=== PATIENT | male | born 1965 | race Caucasian/White ===

== ENCOUNTER 2020-05-07 07:04 | Day surgery (SDC) | payer MEDICARE, OTHER ==
[~2020-05-07] VITALS: Ht 175.3 cm; Wt 75.0 kg
[~2020-05-07 07:04] MED LIST: ACYC800 PO; CLIN300 PO; CLON.5 PO; CYCL10 PO; DIVA500EC; ESCI5 PO; GABA100; HYDACE5 PO; IBUP800 PO; LISI5; LORA1 PO; METO25ER; NAPR500 PO; NAPR500ERA PO; OXYACE5T PO; Percocet 5-3251 EACH PO; QUET100; QUET100 PO; QUET200 PO; QUET25 PO; QUET300 PO; SPIR25; SULTRIDS PO; TRAM50 PO; VENL75ER; ZOLP10 PO
[2020-05-07] MEDS ORDERED: POTA20LUD PO (08:29)
--- NOTE | 2020-05-07 11:25 | NUR ---
ADDENDUM: R AC SITE ([facility]) NO SWELLING/HEMATOMA, MEENU AND TEGADERM DRSG INTACT.
--- NOTE | 2020-05-07 11:25 | NUR ---
PT TO RECOVERY ROOM POST PROCEDURE. PT ALERT AND ORIENTED, COOPERATIVE; DENIES CHEST PAIN POST PROCEUDRE. MONITOR SR 70'S, B/P 162/96, AFEBRILE, SPO2 98% RA. R RADIAL SITE NO SWELLING/HEMATOMA, TR BAND IN PLACE 11 CC AIR AT 1100.
--- NOTE | 2020-05-07 12:20 | NUR ---
ATTEMPTED TO RELEASE AIR FROM R RADIAL TR BAND. PT BLED. TR BAND REINFALTED. NO BLEEDING OR HEMATOMA NOTED. VSS. NADN.
--- NOTE | 2020-05-07 13:10 | NUR ---
PT AIR FULLY DEFLATED FROM TR BAND. NO BLEEDING NOTED. VSS. R BRACHIAL VEIN SITE REMAINS CLEAR. PT SISTER TO BEDSIDE. CALL \LIGHT WITHIN REACH.
--- NOTE | 2020-05-07 13:48 | NUR ---
DISCHARGE: PT TR BAND REMOVED. NO BLEEDING OR HEMATOMA NOTED. VSS. NADN. PT BRACHIAL SITE REMAINS CLEAR. NO BLEEDING NOTED. DOT DRESSING APPLIED TO R RADIAL WITH SPLINT/ SLING IN PLACE. IV DC 'D. CATH INTACT. PRESSURE DSG APPLIED. PT AND SISTER VERBALIZES UNDERSTANDING WRITTEN AND VERBAL ORDERS. PT DC TO HOME VIA .
== END 2020-05-07 13:30 | disposition home or self-care (01) ==
LOC: MHTC 07:04
PROC: B206YZZ Plain Radiography of Right and Left Heart using Other Contrast (ICD-10-PCS; principal; 2020-05-07)
PROC: B201YZZ Plain Radiography of Multiple Coronary Arteries using Other Contrast (ICD-10-PCS; principal; 2020-05-07)
PROC: 4A023N8 Measurement of Cardiac Sampling and Pressure, Bilateral, Percutaneous Approach (ICD-10-PCS; principal; 2020-05-07)
DX: I27.20 Pulmonary hypertension, unspecified (principal); I50.9 Heart failure, unspecified; F17.210 Nicotine dependence, cigarettes, uncomplicated; I42.8 Other cardiomyopathies; Z88.0 Allergy status to penicillin; Z88.8 Allergy status to other drugs, medicaments and biological substances; Z91.013 Allergy to seafood; Z79.899 Other long term (current) drug therapy; I34.0 Nonrheumatic mitral (valve) insufficiency; F32.9 Major depressive disorder, single episode, unspecified; F29 Unspecified psychosis not due to a substance or known physiological condition; F19.10 Other psychoactive substance abuse, uncomplicated
CPT/HCPCS: 76937; 93460; 99152; 99153; C1769; C1894; J1644; J2250; J3010; J7030; J7040; J7050; Q9967

== ENCOUNTER 2020-09-02 22:11 | Emergency (ER) | payer MEDICARE, OTHER ==
[~2020-09-02] VITALS: Ht 177.8 cm; Wt 77.1 kg
[~2020-09-02 22:11] MED LIST changes: +POTA20LUD PO
[2020-09-02 23:20] LABS: BASOPHILS ABSOLUTE AUTO 0.05 K/mm3 (0.00-0.23); BASOPHILS PERCENT AUTO 1 % (0-2); EOSINOPHILS ABSOLUTE AUTO 0.35 K/mm3 (0.00-0.68); EOSINOPHILS PERCENT AUTO 4 % (0-6); Hematocrit 37.6 % (37.0-53.0); Hemoglobin 12.6 g/dL (13.5-17.5); IMMATURE GRAN ABSOLUTE AUTO 0.01 K/mm3 (0.00-0.10); IMMATURE GRAN PERCENT AUTO 0 % (0-1); LYMPHOCYTES ABSOLUTE AUTO 1.44 K/mm3 (0.84-5.20); LYMPHOCYTES PERCENT AUTO 17 % (21-46); MONOCYTES PERCENT AUTO 13 % (4-13); Mean Corpuscular HGB 31.2 pg (26.0-34.0); Mean Corpuscular HGB Conc 33.5 g/dL (31.5-36.5); Mean Corpuscular Volume 93 fL (80-100); NEUTROPHILS ABSOLUTE AUTO 5.54 K/mm3 (1.96-9.15); NEUTROPHILS PERCENT AUTO 65 % (41-73); Platelet Count 313 K/mm3 (150-400); RDW Coefficient Variation 13.2 % (11.7-14.2); RDW Standard Deviation 45.2 fL (35.1-46.3); Red Blood Cell Count 4.04 M/mm3 (4.30-5.90); White Blood Cell Count 8.49 K/mm3 (4.00-11.30)
[2020-09-02 23:35] LABS: International Normalized Ratio 0.96; Prothrombin Time Results 10.3 Sec (9.7-11.5)
[2020-09-02 23:38] LABS: Alanine Aminotransfer (ALT/SGP 19 U/L (12-78); Albumin, Blood 3.5 g/dL (3.4-5.0); Albumin/Globulin Ratio 0.7 (0.8-1.8); Alk Phos 112 U/L (50-136); Anion Gap 5 mmol/L (6-16); Aspartate Aminotrans (AST/SGOT 23 U/L (12-37); Bilirubin, Total 0.4 mg/dL (0.1-1.0); Blood Urea Nitrogen 29 mg/dL (8-24); Bun/Creatinine Ratio 37.3 (12.0-20.0); CO2, Blood 27 mmol/L (21-32); Calcium, Blood 9.2 mg/dL (8.5-10.1); Chloride, Blood 109 mmol/L (98-108); Creatinine, Blood 0.78 mg/dL (0.60-1.20); Globulin, Blood 4.8 g/dL (2.2-4.0); Glomerular Filtration Rate >60 (60-); Glucose, Blood 86 mg/dL (70-99); Potassium, Blood 3.9 mmol/L (3.5-5.5); Sodium, Blood 141 mmol/L (136-145); Total Protein, Blood 8.3 g/dL (6.4-8.2)
[2020-09-04] MEDS ORDERED: Bactrim Ds Tab1 EACH PO (11:56)
[2020-09-04] MEDS ORDERED: CEPH500 PO (11:57)
== END 2020-09-03 01:45 | disposition left against medical advice (07) ==
LOC: ER 22:11
PROVIDERS: Physician Assistant
DX: M79.89 Other specified soft tissue disorders (principal)
CPT/HCPCS: 36415; 80053; 83605; 85025; 85610; 85730; 87040; 99283

== ENCOUNTER 2020-09-04 09:22 | Emergency (ER) | payer MEDICARE, OTHER ==
[~2020-09-04] VITALS: Ht 177.8 cm; Wt 77.1 kg
[2020-09-04 11:08] LABS: BASOPHILS ABSOLUTE AUTO 0.06 K/mm3 (0.00-0.23); BASOPHILS PERCENT AUTO 1 % (0-2); EOSINOPHILS PERCENT AUTO 6 % (0-6); Hematocrit 37.7 % (37.0-53.0); IMMATURE GRAN ABSOLUTE AUTO 0.01 K/mm3 (0.00-0.10); IMMATURE GRAN PERCENT AUTO 0 % (0-1); LYMPHOCYTES PERCENT AUTO 24 % (21-46); MONOCYTES ABSOLUTE AUTO 0.87 K/mm3 (0.16-1.47); MONOCYTES PERCENT AUTO 14 % (4-13); Mean Corpuscular HGB 31.9 pg (26.0-34.0); Mean Corpuscular HGB Conc 34.5 g/dL (31.5-36.5); Mean Corpuscular Volume 93 fL (80-100); Mean Platelet Volume 8.9 fL (9.1-12.4); NEUTROPHILS ABSOLUTE AUTO 3.43 K/mm3 (1.96-9.15); NEUTROPHILS PERCENT AUTO 55 % (41-73); Platelet Count 329 K/mm3 (150-400); RDW Coefficient Variation 13.2 % (11.7-14.2); RDW Standard Deviation 44.9 fL (35.1-46.3); Red Blood Cell Count 4.07 M/mm3 (4.30-5.90); White Blood Cell Count 6.27 K/mm3 (4.00-11.30)
[2020-09-04 11:27] LABS: Alanine Aminotransfer (ALT/SGP 17 U/L (12-78); Albumin, Blood 3.3 g/dL (3.4-5.0); Albumin/Globulin Ratio 0.7 (0.8-1.8); Alk Phos 113 U/L (50-136); Anion Gap 6 mmol/L (6-16); Aspartate Aminotrans (AST/SGOT 24 U/L (12-37); Bilirubin, Total 0.4 mg/dL (0.1-1.0); Blood Urea Nitrogen 21 mg/dL (8-24); Bun/Creatinine Ratio 29.7 (12.0-20.0); CO2, Blood 26 mmol/L (21-32); Calcium, Blood 8.9 mg/dL (8.5-10.1); Chloride, Blood 110 mmol/L (98-108); Creatinine, Blood 0.71 mg/dL (0.60-1.20); Globulin, Blood 4.7 g/dL (2.2-4.0); Glomerular Filtration Rate >60 (60-); Glucose, Blood 91 mg/dL (70-99); Potassium, Blood 3.5 mmol/L (3.5-5.5); Sodium, Blood 142 mmol/L (136-145)
[2020-09-04] MEDS ORDERED: Bactrim Ds Tab1 EACH PO (11:56)
[2020-09-04] MEDS ORDERED: CEPH500 PO (11:57)
== END 2020-09-04 12:06 | disposition home or self-care (01) ==
LOC: ER 09:22
PROVIDERS: Physician Assistant
DX: L03.116 Cellulitis of left lower limb (principal); F17.200 Nicotine dependence, unspecified, uncomplicated; Z79.899 Other long term (current) drug therapy
CPT/HCPCS: 36415; 73590; 80053; 85025; 93971; 99284-25